=== PATIENT | male | born 1990 | race American Indian/Alaskan Native ===

== ENCOUNTER 2018-07-25 23:26 | Emergency (ER) | payer OTHER ==
[2018-07-25 23:39] VITALS: RESP 18
[2018-07-25] MEDS ORDERED: Sodium Chloride 0.9% 1,000 ML IV STA (23:47)
--- NOTE | 2018-07-25 23:51 | ED PDOC ---
Arrival/HPI - General Chief Complaint: Flu-like Symptoms Time Seen by Provider: 07/25/18 23:41 Historian: Patient - History of Present Illness Narrative History of Present Illness (Text): 07/25/18 23:51 Ramsey Rankin is a 28 year old male with no significant past medical history, who presents to the emergency department complaining of a subjective fever today. Patient states he began experiencing a subjective fever/chills and cough with associated sharp pleuritic chest pain while at work this afternoon. Patient also reports a productive cough with clear/yellowish sputum. Patient notes he felt fine yesterday and denies any recent sick contact. Patient states he currently only has chest pain with deep inspiration. Patient reports he took Tylenol 500mg 1 hour prior to arrival. Patient denies any recent travel, body aches, abdominal pain, shortness of breath, nausea, vomiting, diarrhea, urinary symptoms, back pain, headache, sore throat, or any other complaints. No PMD Time/Duration: Other (this afternoon) Symptom Onset: Gradual Symptom Course: Unchanged Activities at Onset: Light Context: Work Past Medical History - Provider Review Nursing Documentation Reviewed: Yes - Infectious Disease Hx of Infectious Diseases: None - Cardiac Hx Cardiac Disorders: No - Pulmonary Hx Respiratory Disorders: No - Neurological Hx Neurological Disorder: No - HEENT Hx HEENT Disorder: No - Renal Hx Renal Disorder: No - Psychiatric Hx Substance Use: Yes (marijuana) - Anesthesia Hx Anesthesia: No Family/Social History - Physician Review Nursing Documentation Reviewed: Yes Family/Social History: Unknown Family HX Smoking Status: Heavy Smoker > 10 Cigarettes Daily Hx Alcohol Use: No Hx Substance Use: Yes (marijuana) Allergies/Home Meds Allergies/Adverse Reactions: Allergies No Known Allergies Allergy (Verified 07/25/18 23:39) Review of Systems - Physician Review All systems were reviewed & negative as marked: Yes - Review of Systems Constitutional: Fevers. absent: Fatigue Eyes: absent: Vision Changes, Eye Pain ENT: absent: Sore Throat, Sinus Congestion Respiratory: Cough, Sputum. absent: SOB Cardiovascular: Chest Pain (only with inspiration). absent: Palpitations Gastrointestinal: absent: Abdominal Pain, Diarrhea, Nausea, Vomiting Musculoskeletal: absent: Back Pain, Neck Pain Skin: absent: Rash Neurological: absent: Headache, Dizziness Physical Exam Vital Signs Reviewed: Yes Vital Signs Temp Pulse Resp BP Pulse Ox 07/25/18 23:39 102.6 F H 115 H 18 124/84 95 Temperature: Febrile Blood Pressure: Normal Pulse: Tachycardic Respiratory Rate: Normal Appearance: Positive for: Well-Appearing, Non-Toxic, Comfortable Pain Distress: None Mental Status: Positive for: Alert and Oriented X 3 - Systems Exam Head: Present: Atraumatic Pupils: Present: PERRL. No: Sluggish, Non-Reactive Extroacular Muscles: Present: EOMI Conjunctiva: Present: Normal Ears: Present: Normal, NORMAL TM, Normal Canal. No: Erythema, TM Bulging, TM Perf Mouth: Present: Moist Mucous Membranes, Normal Lips, Normal Tounge. No: Drooling, Trismus Pharnyx: Present: Normal. No: ERYTHEMA, EXUDATE, TONSILS ENLARGED, Peritonsilar Swelling, Uvular Deviation, Muffled/Hoarse Voice, Strider, Soft Palate/Uvular Edema Nose (External): Present: Atraumatic Nose (Internal): Present: Other (Nasal congestion ). No: No Active Bleeding, Septal Hematoma Neck: Present: Normal Range of Motion. No: Meningeal Signs, MIDLINE TENDERNESS, Paraspinal Tenderness Respiratory/Chest: Present: Clear to Auscultation, Good Air Exchange. No: Respiratory Distress, Accessory Muscle Use, Wheezes, Retracting, Rhonchi, Tachypneic Cardiovascular: Present: Normal S1, S2, Tachycardic. No: Murmurs, Irregular Rhythm Abdomen: No: Tenderness, Distention, Peritoneal Signs, Rebound, Guarding Back: Present: Normal Inspection. No: CVA Tenderness, Paraspinal Tenderness Upper Extremity: Present: Normal Inspection. No: Cyanosis, Edema Lower Extremity: Present: Normal Inspection. No: Edema Neurological: Present: GCS=15, Speech Normal Skin: Present: Warm, Dry, Normal Color. No: Rashes Psychiatric: Present: Alert, Oriented x 3 Medical Decision Making ED Course and Treatment: 07/26/18 00:36 Patient is nontoxic well-appearing. C/o cough and fever/chills that started today Patient found to be febrile and tachycardic tylenol was taken 1 hour prior to arrival pt refused toradol. states he rather see how he feels with the fluid alone. Ekg: Sinus tachycardia at 106 bpm normal axis no ST elevations, incomplete right bundle branch block CBC: WBCs 11.2 CMP: WNL Rapid strep: negative Rapid flu: negative UA: WNL cxr: no infiltrate 07/26/18 00:52 Patient reassessment: Pt feeling better; vitals stable. afebrile. Tamiflu po zithromax PO discussed all results with patient. I advised follow up with primary care physician within the next 2 days. I a dvised taking medications as prescribed. I advised increase fluids and return if symptoms worsen persist or if new symptoms develop Patient verbalizes understanding of discharge instructions and need for immediate followup. all aspects of this case were discussed the attending of record. IMPRESSION; cough, fever Motrin one tablet every 6 hours as needed for pain/fever reduction Tamiflu: 1 capsule twice daily x 5 days Zithromax daily x 4 days Increase fluids Followup with primary care physician the next 2 days Return if symptoms worsen persist or if new symptoms develop: Continued high fevers, dizziness, weakness, chest pain or shortness of breath vomiting/diarrhea, or if any other concerning symptoms develop 07/26/18 01:18 Reassessment Condition: Re-examined, Improved - RAD Interpretation Radiology Orders: 07/25/18 23:47 CHEST TWO VIEWS (PA/LAT) [RAD] Stat - Medication Orders Current Medication Orders: Sodium Chloride (Sodium Chloride 0.9%) 1,000 mls @ 999 mls/hr IV .Q1H1M STA Stop: 07/26/18 00:47 Discontinued Medications Ketorolac Tromethamine (Toradol) 30 mg IVP STAT STA Stop: 07/25/18 23:48 - Scribe Statement The provider has reviewed the documentation as recorded by the [employer] under Wilma Esteban All medical record entries made by the Terraibrobert were at my direction and personally dictated by me. I have reviewed the chart and agree that the record accurately reflects my personal performance of the history, physical exam, medical decision making, and the department course for this patient. I have also personally directed, reviewed, and agree with the discharge instructions and disposition. Disposition/Present on Arrival - Present on Arrival Any Indicators Present on Arrival: No History of DVT/PE: No History of Uncontrolled Diabetes: No Urinary Catheter: No History of Decub. Ulcer: No History Surgical Site Infection Following: None - Disposition Have Diagnosis and Disposition been Completed?: Yes Diagnosis: Cough, Fever Disposition: HOME/ ROUTINE Disposition Time: 00:39 Patient Plan: Discharge Patient Problems: Current Active Problems Problem Status Onset Cough Acute Fever Acute Condition: GOOD Discharge Instructions (ExitCare): Cough, Adult (DC), Fever, Adult (DC) Additional Instructions: Motrin one tablet every 6 hours as needed for pain/fever reduction Tamiflu: 1 capsule twice daily x 5 days Zithromax daily x 4 days Increase fluids Followup with primary care physician the next 2 days Return if symptoms worsen persist or if new symptoms develop: Continued high fevers, dizziness, weakness, chest pain or shortness of breath vomiting/diarrhea, or if any other concerning symptoms develop Prescriptions: Azithromycin [Zithromax] 250 mg PO DAILY #4 tab Ibuprofen [Motrin] 600 mg PO Q6H PRN #20 tab PRN Reason: pain/fever reduction Oseltamivir Cap [Tamiflu] 75 mg PO BID #10 cap Referrals: Bryanna Bernardo MD [Medical Doctor] - Follow up with primary [facility] [Outside] - Follow up with primary Forms: [facility] ([place]), WORK NOTE
[2018-07-26 00:21] LABS: BASO # 0.01 K/mm3 (0.0-2.0); BASO % 0.1 % (0.0-3.0); EOS # 0.3 (0.0-0.7); EOS % 2.5 % (1.5-5.0); HEMOGLOBIN 13.3 g/dL (14.0-18.0); LYMPH # 1.8 (1.2-3.4); LYMPH % 16.2 % (22.0-35.0); MEAN CELL VOLUME 93.1 fl (80.0-105.0); MEAN CORPUSCULAR HEMOGLOBIN 30.5 pg (25.0-35.0); MEAN CORPUSCULAR HGB CONC 32.8 g/dl (31.0-37.0); MEAN PLATELET VOLUME 10.3 fl (7.0-11.0); MONO # 0.8 (0.1-0.6); MONO % 7.1 % (1.0-6.0); RBC 4.36 10^6/uL (3.5-6.1); WHITE BLOOD COUNT 11.2 10^3/uL (4.5-11.0)
[2018-07-26 00:34] LABS: ALB/GLOB RATIO 1.2 (1.1-1.8)
[2018-07-26 00:35] LABS: INFLUENZA A B NEGATIVE FOR FLU A/B (NEGATIVE)
[2018-07-26 00:39] LABS: ALBUMIN 4.4 g/dL (3.0-4.8); ALT/SGPT 27 U/L (7-56); AST/SGOT 33 U/L (17-59); BLOOD UREA NITROGEN 15 mg/dL (7-21); CALCIUM 9.5 mg/dL (8.4-10.5); GFR NON-AFRICAN AMERICAN > 60
[2018-07-26 01:05] VITALS: O2SAT 100
[2018-07-26 01:05] LABS: URINE BILIRUBIN NEGATIVE (NEGATIVE); URINE BLOOD NEGATIVE (NEGATIVE); URINE GLUCOSE (UA) NEGATIVE (NEGATIVE); URINE LEUKOCYTE ESTERASE NEGATIVE Leu/uL (NEGATIVE); URINE PROTEIN NEGATIVE mg/dL (<30 mg/dL); URINE UROBILINOGEN 0.2 E.U./dL (<1 E.U./dL)
[2018-07-26 01:08] LABS: URINE APPEARANCE CLEAR (CLEAR); URINE COLOR YELLOW (YELLOW)
[2018-07-26 01:28] VITALS: BP 132/77; PULSE 98; TEMP 99.2
--- NOTE | 2018-07-26 08:14 | RAD ---
Date of service: 07/26/2018 HISTORY: cough/fever COMPARISON: No prior. TECHNIQUE: Chest PA and lateral views FINDINGS: LUNGS: No active pulmonary disease. PLEURA: No significant pleural effusion identified. No pneumothorax apparent. CARDIOVASCULAR: No aortic atherosclerotic calcification present. Normal cardiac size. No pulmonary vascular congestion. OSSEOUS STRUCTURES: No significant abnormalities. VISUALIZED UPPER ABDOMEN: Normal. OTHER FINDINGS: None. IMPRESSION: No acute cardiopulmonary disease appreciated.
--- NOTE | 2018-07-26 19:01 | CARD ---
APPROVED REPORT Date of service: 07/25/2018 EKG Measurement Heart [id number] <Conclusion> Sinus tachycardia Otherwise normal ECG
== END 2018-07-26 01:39 | disposition home or self-care (01) ==
LOC: ED 23:26
DX: R50.9 Fever, unspecified (principal); R05 Cough
CPT/HCPCS: 71046; 80053; 81003; 85025; 87070; 87430; 87804; 93005; 99284; J7030